=== PATIENT | female | born 1990 | race Caucasian/White ===

== ENCOUNTER 2021-07-07 15:13 | Emergency (ER) | payer MEDICARE, BC ==
[~2021-07-07] VITALS: Ht 170.2 cm; Wt 79.4 kg
--- NOTE | 2021-07-07 16:00 | NUR ---
patient came in to the er intentional overdose on geodone and mirtazipine 45 mins [employer]. On room air, breathing evenly and unlabored. Connected to the monitor and pulse ox. Kept comfortable, will continue to monitor accordingly.
[2021-07-07] MEDS ORDERED: ONDANSETRON 4 MG TAB.RAPDIS ONE (16:12)
[2021-07-07] MEDS ORDERED: ONDANSETRON HCL 4 MG/5 ML SOLUTION PO ONE (16:30)
[2021-07-07 20:29] LABS: BASOPHILS % (AUTO) 0.4 % (0.0-2.0); EOSINOPHILS % (AUTO) 0.2 % (0.0-6.0); HEMATOCRIT 39 % (33-45); LYMPHOCYTES # (AUTO) 2.5 K/uL (0.8-4.8); MEAN CORPUSCULAR HGB CONC 33 g/dl (31.0-36.0); MEAN CORPUSCULAR VOLUME 81 fL (82-100); MONOCYTES # (AUTO) 0.5 K/uL (0.1-1.30); MONOCYTES % (AUTO) 5.5 % (2.0-12.0); NEUTROPHILS # (AUTO) 5.6 K/uL (1.8-8.9); NEUTROPHILS % (AUTO) 64.9 % (43.0-81.0); PLATELET COUNT (AUTO) 311 K/uL (150-450); RED BLOOD CELL COUNT(AUTO) 4.89 MIL/uL (4.0-5.2); WHITE BLOOD COUNT (AUTO) 8.6 K/uL (4.3-11.0)
[2021-07-07 20:38] LABS: CARBON DIOXIDE 27 mmol/L (21-32); CHLORIDE 107 mmol/L (98-107); CREATININE 0.7 mg/dL (0.6-1.3); GLUCOSE 83 mg/dL (74-106); POTASSIUM 4.6 mmol/L (3.5-5.1); SODIUM SERUM 141 mmol/L (136-145); UREA NITROGEN, BLOOD 13 mg/dL (7-18)
[2021-07-07 20:46] LABS: ALANINE AMINOTRANSFERASE 35 U/L (12-78); ALBUMIN 3.6 g/dL (3.4-5.0); ALKALINE PHOSPHATASE 140 U/L (46-116); ASPARTATE AMINOTRANSFERASE 24 U/L (15-37); BILIRUBIN,DIRECT 0.1 mg/dL (0.0-0.2); BILIRUBIN,TOTAL 0.3 mg/dL (0.2-1.0); TOTAL PROTEIN, SERUM 6.9 g/dL (6.4-8.2)
[2021-07-07 20:48] LABS: ACETAMINOPHEN < 0 ug/ml (10-30); ALCOHOL, BLOOD < 3 mg/dL (0-0)
[2021-07-07] MEDS ORDERED: Magnesium 1GM/D5W 100ML PREMIX 200 ML IV ONE (21:00)
--- NOTE | 2021-07-07 21:22 | NUR ---
PER DR GONSALEZ PT MEDICALLY CLEARED.
--- NOTE | 2021-07-07 22:00 | NUR ---
URINE SPECIMEN COLLECTED AND SENT TO LAB.
--- NOTE | 2021-07-07 22:03 | NUR ---
PT PROVIDED WITH WARM BLANKETS AND FOOD.
[2021-07-07 22:21] LABS: BILIRUBIN,URINE NEGATIVE (NEGATIVE); COLOR,URINE YELLOW (YELLOW); LEUKOCYTE ESTERASE ,URINE NEGATIVE (NEGATIVE); NITRITE, URINE NEGATIVE (NEGATIVE); PROTEIN,URINE NEGATIVE (NEGATIVE); UGLUCOSE NEGATIVE (NEGATIVE); UROBILINOGEN,URINE 0.2 EU/dL (0.2)
--- NOTE | 2021-07-07 22:51 | NUR ---
ENRIQUE HIRSCH DOLLYMAN PAGED.
[2021-07-07] MEDS ORDERED: ONDA4TAB5 PO (23:49)
--- NOTE | 2021-07-08 02:17 | NUR ---
Patient discharged to home in stable condition. Written and verbal after care instructions given. Patient verbalizes understanding of instruction.
[2021-07-08 04:51] VITALS: BP 130/90
== END 2021-07-08 02:17 | disposition home or self-care (01) ==
LOC: ER 15:20
DX: T43.021A Poisoning by tetracyclic antidepressants, accidental (unintentional), initial encounter (principal); R11.2 Nausea with vomiting, unspecified; R94.31 Abnormal electrocardiogram [ECG] [EKG]; F31.9 Bipolar disorder, unspecified; Y92.89 Other specified places as the place of occurrence of the external cause
CPT/HCPCS: 36415; 80048; 80076; 80143; 80307; 80320; 81003; 85025; 93005 ×4; 99284; J7030; Q0162; G0480